=== PATIENT | female | born 1995 | race Two or more races ===

== ENCOUNTER 2024-11-28 04:57 | Emergency (ER) | payer OTHER, SELFPAY ==
[2024-11-28 05:00] VITALS: BP 135/83
[2024-11-28 05:11] VITALS: BP 108/69
--- NOTE | 2024-11-28 05:28 | ED.GENMED ---
History of Present Illness
General
Chief Complaint: Breathing Problem
Source: patient and spouse
Exam Limitations: none
Time Seen by Provider: 11/28/24 05:17
Nursing documentation reviewed up to this point in time: agreed with
History of Present Illness
History of Present Illness:
This is a 29-year-old female with no significant past medical history. She takes no medicines on a daily basis.
She presents with her this morning with complaints of some shortness of breath that woke her from sleep just prior to arrival. She states she awoke feeling that she had difficulty taking a full deep breath but no other associated symptoms.
No cough, no sore throat, no chest pain, no palpitations, no dizziness nor lightheadedness, no nausea, no diaphoresis, no abdominal pain.
Shortness of breath has since resolved and she is feeling well, at her baseline.
No history of similar episodes in the past.
Last menstrual period October 13. She adamantly denies risk of . Menses are occasionally irregular.
No recent travel. She denies leg pain or swelling.
Past History
Past History
ED Past Medical History: None
ED Past Surgical History: None
Social History
Tobacco: Non-smoker
Alcohol: None
Drug: None
Personal:
Living: with family
Employment: Employed
Family History
Family History: Negative CAD, Asthma or Sudden
Phy Exam
Physical Exam
Physical Exam:
GENERAL: 29-year-old female appears her stated age, awake and alert, pleasant, appears in no acute distress. Respirations are easy and nonlabored. Easily communicative. is accompanying. Mild tachycardia noted in triage, has since
resolved. Pulse ox 100% on room air.
EYE: pupils equal, anicteric
NECK: Supple, nontender, no meningismus, no significant adenopathy. No JVD.
ENT: posterior pharynx is clear, oral mucosa is moist. TM clear b/l, nares patent.
CARDIAC: Regular rate and rhythm. no murmur. No rub.
LUNGS: Clear breath sounds bilaterally, no acute respiratory distress, no wheezes/rales/rhonchi
ABDOMEN: Soft, nondistended, without focal tenderness, no r/g, normoactive BS.
NEUROLOGICAL: Alert and oriented x3, no focal neuro deficits.
SKIN: Warm and dry, normal color, skin intact. No rash.
MUSCULOSKELETAL: No C/C/E. peripheral pulses are full and equal b/l. No palpable tenderness.
PSYCH: Normal and appropriate interaction.
Scores
Heart Failure Risk
Heart Failure Risk Score: Not Applicable
Course
Orders/Labs/Results
Orders:
Orders
11/28/24 05:26
CR Chest - 2 Views Urgent
Comment:
Reason For Exam: shortness of breath
11/28/24 05:34
Test Result ONCE
11/28/24 05:35
3 Minute Walk Test [3 Minute Walk Test- Treatment] ONCE
11/28/24 06:05
HCG, Urine Qualitative Screen Urgent
Date Specimen was Collected: 11/28/24
Time Specimen was Collected: 06:04
Vital Signs
Initial and Last Documented VS:
Initial Vital Signs
Temp Pulse Resp BP Pulse Ox
98 F 116 26 135/83 100
11/28/24 05:00 11/28/24 05:00 11/28/24 05:00 11/28/24 05:00 11/28/24 05:00
Last Documented Vital Signs
Temp Pulse Resp BP Pulse Ox
98 F 61 15 119/80 94
11/28/24 05:00 11/28/24 05:45 11/28/24 05:45 11/28/24 06:10 11/28/24 06:10
MDM/Problems Addressed
Differential Diagnosis Includes:
Concern for pneumonia, GERD, arrhythmia, anxiety.
Currently asymptomatic, overall comfortable in appearance.
Will check chest x-ray.
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 Currently showing normal sinus rhythm. No evidence of arrhythmia.
Last menstrual period May 6. Patient adamantly denies risk of however, uses no control methods. I have recommended we check a test which she currently declines.
With reassuring/unremarkable physical exam, normal vital signs and abrupt resolution of symptoms, at this point no indication for laboratory studies.
No history of thromboembolism nor risk factors for such and again reassuring that symptoms have resolved.
*Radiology
Radiology exam reviewed: preliminary read by ED provider (Chest x-ray is unremarkable. Clear lung cintron. Normal heart size.)
*Pulse Oximetry
SaO2: 100
Oxygen Mode of Delivery: Room air
Patient hypoxic: no
*Claim Service Representative Interpretation
Rate: normal
Interpretation: normal
Rhythm: sinus
*Critical Care Note
Total Time (30-74mins, 75-104mins- exclusive of procedures): Not Applicable
Update Note
Update Note:
05:30
Patient remains comfortable and asymptomatic.
No return of shortness of breath.
Chest x-ray is unremarkable.
She remains asymptomatic with 3-minute walk test. No shortness of breath. No hypoxia. No tachycardia.
Brief episode of shortness of breath upon waking may have been an element of mild GERD versus waking from a nightmare.
UCG is negative.
Will discharge to home with recommendation for follow-up with PCP especially if shortness of breath recurs.
ED Attending Note
-
Portions of this chart may have been created with voice recognition software.� Occasional wrong word or��sound alike� substitutions may have occurred due to the inherent limitations of voice recognition software.
Discharge Plan
Departure
Patient Disposition: Home (Routine Discharge)
Date of Disposition: 11/28/24
Time of Disposition: 06:25
Patient with high blood pressure during this ER visit?: No
Condition: Good
Discharge Problem:
acute nocturnal dyspnea
Instructions: Shortness of breath in adults - ED discharge instructions
Referrals:
UNKNOWN - PT DOES,NOT KNOW [Family Provider]
Activity Restrictions/Additional Instructions:
Follow-up with your primary care physician for recheck especially if shortness of breath recurs.
Interventions
Interventions:
*Risk Screen - Suicide Last Done: 11/28/24 05:00
*General Assessment Last Done: 11/28/24 05:00
*Neglect/Abuse Screening Last Done: 11/28/24 05:00
*ED- Fall Risk Assessment Last Done: 11/28/24 05:00
*ED COVID-19 Vaccine History Last Done: 11/28/24 05:00
ED- Cardiac Assessment Last Done: 11/28/24 05:45
ED- Pulmonary Assessment Last Done: 11/28/24 05:45
Discharge Date and Time
Print Language: HONDURAN
[2024-11-28 05:35] VITALS: BP 119/80
[2024-11-28 06:10] VITALS: BP 119/80
[2024-11-28 06:14] LABS: HCG, Urine Qualitative Screen Negative
== END 2024-11-28 06:35 | disposition home or self-care (01) ==
LOC: EMR 04:57
PROVIDERS: EMERGENCY PHYSICIAN Emergency Medicine
DX: R06.09 Other forms of dyspnea (principal)
CPT/HCPCS: 99284; 71046; 81025